=== PATIENT | female | born 1965 | race Caucasian/White ===

== ENCOUNTER 2017-08-23 16:35 | Emergency (ER) | payer MEDICAID ==
[2017-08-23 17:38] LABS: BASOPHIL % 0.4 % (0-2); PLATELET COUNT 223 x10^3mcL (130-400)
[2017-08-23 17:51] LABS: CALCIUM 8.9 mg/dL (8.5-10.1); CARBON DIOXIDE 29.5 mmol/L (21-32); CHLORIDE SERUM 103 mmol/L (98-107); CREATININE SERUM 0.9 mg/dL (0.6-1.0); GFR1 > 60 mL/min; GLUCOSE SERUM 111 mg/dL (74-106); POTASSIUM SERUM 3.8 mmol/L (3.5-5.1); SODIUM SERUM 140 mmol/L (136-145)
[2017-08-23 17:54] LABS: ALKALINE PHOSPHATASE 115 U/L (46-116); ALT/SGPT 53 U/L (14-59); AST/SGOT 17 U/L (15-37); BILIRUBIN TOTAL 0.5 mg/dL (0.20-1.00); LIPASE 386 IU/L (73-393); TOTAL PROTEIN, SERUM 7.7 g/dL (6.4-8.2); URIC ACID 3.9 mg/dL (2.6-6.0)
[2017-08-23 18:36] LABS: microscopic required? YES; urine erythrocyte TRACE (NEGATIVE)
[2017-08-23 19:58] VITALS: BP 127/77
== END 2017-08-23 19:58 | disposition home or self-care (01) ==
LOC: ED 16:35
PROVIDERS: Emergency Medicine
DX: R10.9 Unspecified abdominal pain (principal)
CPT/HCPCS: 36415